=== PATIENT | male | born 1985 | race Caucasian/White ===

== ENCOUNTER → 2021-07-01 14:57 | Outpatient (CLI) | payer SELFPAY | PROVIDERS: Referring Provider Internal Medicine; Visit Provider Internal Medicine | DX: Z23 Encounter for immunization (principal) | CPT/HCPCS: 90471; 90686 ==

== ENCOUNTER → 2021-08-19 09:31 | Outpatient (CLI) | payer OTHER, SELFPAY ==
[2021-08-19 11:29] LABS: COVID19 -Nasal RAPID Negative (Negative)
== END ==
PROVIDERS: Visit Provider Physician Assistant
DX: Z20.822 Contact with and (suspected) exposure to COVID-19 (principal); R05.9 Cough, unspecified; J02.9 Acute pharyngitis, unspecified; R09.89 Other specified symptoms and signs involving the circulatory and respiratory systems; R52 Pain, unspecified
CPT/HCPCS: 87635

== ENCOUNTER → 2021-12-23 11:41 | Outpatient (CLI) | payer OTHER, SELFPAY ==
[2021-12-23 12:55] LABS: Add Manual Diff / Slide Review NO; Basophils Absolute Auto 0 /uL (0-100); Basophils Percent Auto 0.4 % (0-2); Eosinophils Absolute Auto 100 /uL (0-450); Eosinophils Percent Auto 1.4 % (2-4); Hemoglobin 15.3 g/dL (13.5-17.5); Lymphocytes Absolute Auto 1900 /uL (1100-4500); Lymphocytes Percent Auto 29.2 % (25-40); Mean Corpuscular HGB Conc 34.8 % (30-36); Mean Corpuscular Hemoglobin 32.4 PG (26-34); Mean Corpuscular Volume 93.2 fL (80-100); Monocytes Absolute Auto 400 /uL (0-900); Monocytes Percent Auto 6.3 % (3-14); Neutrophils Absolute Auto 4000 /uL (1500-7000); Neutrophils Percent Auto 62.7 % (50-75); Platelet Count 240 X10^3/uL (150-400); Red Blood Cell Count 4.72 X10^6/uL (4.5-5.9); Red Cell Distribution Width 13.1 % (11.6-14.8); White Blood Cell Count 6.4 X10^3/uL (4.5-11.0)
[2021-12-23 13:05] LABS: Alanine Aminotransferase 31 IU/L (<50); Albumin 4.3 g/dL (3.5-5.0); Albumin Globulin Ratio 1.5 (1.0-2.8); Alkaline Phosphatase 57 U/L (38-126); Aspartate Aminotransferase 32 IU/L (17-59); BUN Creatinine Ratio 10.2 (6-22); Bilirubin Total 0.4 mg/dL (0.2-1.3); Blood Urea Nitrogen 10 mg/dL (9-20); Calcium 8.9 mg/dL (8.4-10.2); Carbon Dioxide 32 mmol/L (22-32); Chloride 102 mmol/L (98-107); Cholesterol 188 mg/dL (140-199); Estimated Glomerular Filt Rate > 60 mL/min (>60); Globulin 2.9 g/dL (1.7-4.1); Glucose 97 mg/dL (70-100); HDL Cholesterol 30 mg/dL (40-60); HEMOLYSIS < 15 (0-50); LDL Cholesterol Calculated 124 mg/dL (<100); Potassium 4.1 mmol/L (3.4-5.1); Sodium 137 mmol/L (137-145); Total Protein 7.2 g/dL (6.3-8.2); Triglycerides 172 mg/dL (35-150)
== END ==
PROVIDERS: Referring Provider Family Medicine; Visit Provider Family Medicine
DX: Z13.220 Encounter for screening for lipoid disorders (principal)
CPT/HCPCS: 36415; 80053; 80061; 85025

== ENCOUNTER 2022-10-20 11:32 | Emergency (ER) | payer OTHER, SELFPAY ==
[2022-10-20 11:33] VITALS: BP 136/86; PULSE 96; RESP 18; TEMP 36.6; O2SAT 98; BMI 27.8
--- NOTE | 2022-10-20 12:13 | ED_ITS ---
HPI - Wound/Laceration <Christian Galdamez PA-C - Last Filed: 10/20/22 13:42> General Chief Complaint: Wound/Laceration Stated Complaint: lac Time Seen by Provider: 10/20/22 12:11 Source: patient Mode of arrival: Ambulatory History of Present Illness HPI narrative: 37-year-old male with past medical history ADHD presents to the ED after a injury to the left 5th finger sustained just prior to arrival. Patient states he was working with some glass tubes, when accidentally he injured himself on a piece of broken glass. Patient denies numbness, tingling, weakness. Patient endorses full range of motion. Patient not on blood thinners. Tetanus is up-to-date. Related Data Allergies Allergy/AdvReac Type Severity Reaction Status Date / Time Sulfa (Sulfonamide Allergy Verified 10/20/22 11:33 Antibiotics) Review of Systems <Christian Galdamez PA-C - Last Filed: 10/20/22 13:42> Review of Systems ROS Unobtainable: All systems reviewed & are unremarkable except as noted in HPI and below Constitutional Constitutional: Denies chills, Denies fatigue, Denies fever(s), Denies frequent falls, Denies lethargy and Denies weakness Eyes Eyes: Denies change in vision, Denies eye discharge, Denies irritation and Denies loss of vision ENT Ears, Nose, Mouth, and Throat: Denies change in voice, Denies dizziness, Denies neck pain, Denies sore throat and Denies throat swelling Cardiovascular Cardiovascular: Denies chest pain, Denies irregular heart rhythm, Denies lightheadedness, Denies palpitations, Denies dyspnea, Denies dyspnea on exertion and Denies orthopnea Respiratory Respiratory: Denies cough, Denies dyspnea, Denies dyspnea on exertion and Denies wheezing Gastrointestinal Gastrointestinal: Denies abdominal pain, Denies change in bowel habits, Denies diarrhea, Denies nausea and Denies vomiting Genitourinary Genitourinary: Denies hematuria, Denies flank pain, Denies urinary incontinence and Denies urinary urgency Musculoskeletal Musculoskeletal: Denies back pain, Denies muscle weakness, Denies neck pain, Denies numbness and Denies tingling Integumentary/Breasts Skin/Breast: Denies pruritus, Denies erythema, Denies rash and Denies wounds Comments: Laceration to L 5th finger Neurologic Neurologic: Denies behavioral changes, Denies confusion, Denies dizziness, Denies frequent falls, Denies loss of vision, Denies numbness, Denies tingling and Denies weakness Psychiatric Psychiatric: Denies anxiety, Denies behavioral changes, Denies confusion, Denies depression, Denies homicidal ideation and Denies suicidal ideation Endocrine Endocrine: Denies fatigue, Denies flushing and Denies palpitations Hematologic/Lymphatic Hematologic/Lymphatic: Denies easy bruising Allergic/Immunologic Allergic/Immunologic: Denies urticaria, Denies throat swelling and Denies wheezing Patient History <Christian Galdamez PA-C - Last Filed: 10/20/22 13:42> Social History Smoking Status: Current every day smoker Smoking Status: Current every day smoker Substance Use Type: does not use Exam <Christian Galdamez PA-C - Last Filed: 10/20/22 13:42> Narrative Exam Narrative: Const General:?cooperative, healthy appearing and comfortable [facility] Head:?normal to inspection Ears:?hearing grossly normal bilaterally Nose:?external nose normal Face and sinus:?normal facial exam and sinuses nontender Mouth:?oral mucosae normal Throat:?posterior oropharynx normal Eyes General:?appearance normal, both eyes and all related structures Neck Neck:?normal visual inspection and no lymphadenopathy noted Resp Effort & Inspection:?normal respiratory effort Auscultation:?clear to auscultation bilaterally Cardio Rate:?regular rate Rhythm:?regular rhythm Integumentary 1.5cm laceration to palmar aspect of the distal phalange of the L 5th finger. Bleeding controlled with pressure. Musculoskeletal Full range of motion. Strength and sensation intact. Patient is neurovascularly intact. Neuro General:?patient alert, patient awake and patient oriented x3 Initial Vital Signs Initial Vital Signs: Vital Signs Temperature 98 F 10/20/22 11:33 Pulse Rate 96 H 10/20/22 11:33 Respiratory Rate 18 10/20/22 11:33 Blood Pressure 136/86 10/20/22 11:33 Pulse Oximetry 98 10/20/22 11:33 Oxygen Delivery Method 10/20/22 11:33 <Tobin Ryan DO - Last Filed: 10/21/22 07:01> Initial Vital Signs Initial Vital Signs: Vital Signs Temperature 98 F 10/20/22 11:33 Pulse Rate 96 H 10/20/22 11:33 Respiratory Rate 18 10/20/22 11:33 Blood Pressure 136/86 10/20/22 11:33 Pulse Oximetry 98 10/20/22 11:33 Oxygen Delivery Method 10/20/22 11:33 Procedures <NIKHIL Mckinney Last Filed: 10/20/22 13:42> Laceration Repair Laceration 1: Site: hand (Left 5th finger) Side (If applicable): left Size (cm): 1.5 Description: linear and clean Local Anesthetic: lidocaine 2% Amount of anesthesia used (mL): 1 Pre-repair: wound explored, irrigated extensively and deep structures intact Skin layer closed with: vicryl Skin layer suture size: 5-0 Number of sutures: 4 Technique: simple, interrupted Course <NIKHIL Mckinney Last Filed: 10/20/22 13:42> Orders Ordered: ED Orders 10/20/22 12:21 XR finger LT min 2V Stat Vital Signs Vital signs: Vital Signs - 8 hr 10/20/22 11:33 Temperature 98 F Pulse Rate 96 H Respiratory Rate 18 Blood Pressure 136/86 Pulse Oximetry 98 Oxygen Delivery Method Room Air <Tobin Ryan DO - Last Filed: 10/21/22 07:01> Orders Ordered: ED Orders 10/20/22 12:21 XR finger LT min 2V Stat Vital Signs Vital signs: Vital Signs - 8 hr 10/20/22 11:33 Temperature 98 F Pulse Rate 96 H Respiratory Rate 18 Blood Pressure 136/86 Pulse Oximetry 98 Oxygen Delivery Method Room Air MDM - Wound/Laceration <NIKHIL Mckinney Last Filed: 10/20/22 13:42> MDM Narrative Medical decision making narrative: 37-year-old male with past medical history ADHD presents to the ED after a injury to the left 5th finger sustained just prior to arrival. Will get an x- ray to rule out fracture/foreign body. Will repair laceration with sutures. X-ray negative for fracture/foreign bodies. Laceration was repaired with 4 sutures. Wound care instructions, signs of infection discussed with patient. ED return precautions discussed with patient. Medical records reviewed: Yes Discharge Plan Departure Patient Disposition: Home Clinical Impression: Laceration Instructions: DI for Laceration Repair Activity Restrictions/Additional Instructions: You were evaluated in the ED today for a laceration that he sustained to your left pinky finger. X-ray did not show any retained glass pieces. Your laceration was repaired with 4 sutures, which will need to be removed in 7-10 days. You may go to a urgent Care Clinic, walk-in clinic, PCP or return to the ED for suture removal. Please watch for signs of infection including worsening redness, pain, swelling, warmth, discharge. Return to the ED if you note any signs of infection, or you experience numbness, tingling, weakness. Referrals: Sami Liu MD [Primary Care Provider] - Stand Alone Forms: Patient Portal/API <Tobin Ryan DO - Last Filed: 10/21/22 07:01> Cosign ED Attending Cosconiature Attestation: I was immediately available in the department for consultation. This documentation has been reviewed and I agree with assessment and plan. Supervised by Tobin Ryan DO
--- NOTE | 2022-10-20 12:21 | DI.RAD.S_ITS ---
PROCEDURE: XR FINGER LT MIN 2V INDICATIONS: ?FB; L 5th finger TECHNIQUE: AP hand, 2 views of the left 5th finger(s) acquired. COMPARISON: None. FINDINGS: Bones: No fractures or dislocations. No suspicious bony lesions. Soft tissues: No suspicious soft tissue calcifications. IMPRESSION: No radiopaque foreign body or other acute finding. Dictated by: Jamal Long M.D. on 10/20/2022 at 13:02 Approved by: Jamal Long M.D. on 10/20/2022 at 13:02
== END 2022-10-20 13:39 | disposition home or self-care (01) ==
PROVIDERS: Emergency Provider Student in an Organized Health Care Education/Training Program; PCP Family Medicine
DX: S61.217A Laceration without foreign body of left little finger without damage to nail, initial encounter (principal); W25.XXXA Contact with sharp glass, initial encounter; Y99.0 Civilian activity done for income or pay
CPT/HCPCS: 12001; 73140; 99283

== ENCOUNTER → 2023-07-17 14:10 | Outpatient (CLI) | payer OTHER, SELFPAY | PROVIDERS: PCP Family Medicine; Referring Provider Family Medicine; Visit Provider Family Medicine | DX: Z23 Encounter for immunization (principal) | CPT/HCPCS: 90471; 90686 ==

== ENCOUNTER → 2024-08-01 17:06 | Outpatient (CLI) | payer OTHER, SELFPAY | PROVIDERS: PCP Family Medicine; Referring Provider Internal Medicine; Visit Provider Internal Medicine | DX: Z23 Encounter for immunization (principal) | CPT/HCPCS: 90471; 90656 ==

== ENCOUNTER 2025-02-09 14:37 | Emergency (ER) | payer OTHER, SELFPAY ==
[2025-02-09 14:41] VITALS: BP 131/92; PULSE 110; RESP 18; TEMP 36.9; O2SAT 97; BMI 27.8
--- NOTE | 2025-02-09 15:59 | ED.BURNSMOKE ---
HPI - Burn/Smoke Inhalation <Ely Schneider PA-C - Last Filed: 02/09/25 19:04> General Chief complaint: Burn/Smoke Inhalation Stated complaint: burn hand arm foot Time Seen by Provider: 02/09/25 15:52 Source: patient Mode of arrival: Ambulatory History of Present Illness HPI Narrative: Mr. 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 Patient was working when a pipe released steam burning his left arm, right wrist and left ankle, the remainder of his body was unharmed as his clothing protected him, the steam did not affect his face. He now has erythema on the left forearm/antecubital fossa region, right wrist, and left lateral ankle approximately 2% body surface area. There was no blistering. He has been applying Dermoplast with improvement in symptoms. Related Data Allergies Allergy/AdvReac Type Severity Reaction Status Date / Time Sulfa (Sulfonamide Allergy Verified 02/09/25 14:41 Antibiotics) Review of Systems <Ely Schneider PA-C - Last Filed: 02/09/25 19:04> Review of Systems ROS Unobtainable: All systems reviewed & are unremarkable except as noted in HPI and below Patient History <Ely Schneider PA-C - Last Filed: 02/09/25 19:04> Social History Smoking Status: Current every day smoker Smoking Status: Current every day smoker tobacco type: cigarettes Exam <Ely Schneider PA-C - Last Filed: 02/09/25 19:04> Narrative Exam Narrative: GENERAL: 39 year old patient appears stated age. Well-developed patient, in no acute distress. HEAD: Atraumatic. Normocephalic. EYES: No scleral icterus. No injection or drainage. ENT: Airway patent. NECK: Trachea midline. Cervical ROM intact. CARDIOVASCULAR: Regular rate RESPIRATORY: ?Nonlabored respirations. ?Speaking in clear, full sentences. EXTREMITIES: Blanchable erythema consistent with superficial burn 1% body surface area left mid anterior arm, 0.5% BSA right radial wrist, 0.5% BSA left alteral ankle. No blistering or open wounds. BACK: Nontender without deformity or crepitance. No flank tenderness. NEURO: AOx3. ?Clear speech. ?Moves all 4 extremities appropriately. SKIN: Approximately 2% body surface area superficial burn left arm, right wrist, left ankle described above, no other grady, second-degree grady or facial grady. Initial Vital Signs Initial Vital Signs: Vital Signs Temperature 98.4 F 02/09/25 14:41 Pulse Rate 110 H 02/09/25 14:41 Respiratory Rate 18 02/09/25 14:41 Blood Pressure 131/92 H 02/09/25 14:41 Pulse Oximetry 97 02/09/25 14:41 Oxygen Delivery Method Room Air 02/09/25 14:41 <DO Jayy Sorto Last Filed: 02/20/25 19:06> Initial Vital Signs Initial Vital Signs: Vital Signs Temperature 98.4 F 02/09/25 14:41 Pulse Rate 110 H 02/09/25 14:41 Respiratory Rate 18 02/09/25 14:41 Blood Pressure 131/92 H 02/09/25 14:41 Pulse Oximetry 97 02/09/25 14:41 Oxygen Delivery Method Room Air 02/09/25 14:41 Course <Ely Schneider PA-C - Last Filed: 02/09/25 19:04> Vital Signs Vital signs: Vital Signs - 8 hr 02/09/25 14:41 02/09/25 16:51 Temperature 98.4 F Pulse Rate 110 H 91 H Respiratory Rate 18 16 Blood Pressure 131/92 H 138/83 Pulse Oximetry 97 98 Oxygen Delivery Method Room Air Room Air <DO Jayy Sorto Last Filed: 02/20/25 19:06> Vital Signs Vital signs: Vital Signs - 8 hr 02/09/25 14:41 02/09/25 16:51 Temperature 98.4 F Pulse Rate 110 H 91 H Respiratory Rate 18 16 Blood Pressure 131/92 H 138/83 Pulse Oximetry 97 98 Oxygen Delivery Method Room Air Room Air MDM - Burn/Smoke Inhalation <NIKHIL Casillas Last Filed: 02/09/25 19:04> Medical Records Attestation: I reviewed the patient's medical records. 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 Differential diagnosis includes but isn't limited to steam burn, superficial burn, superficial partial burn, etc. On exam patient is in no acute distress, nontoxic appearing. He is approximately 2% total body surface area first-degree/superficial burn including the left arm, right wrist and left lateral ankle which occurred because of steam while he was working. No facial or airway involvement. No blistering or open wounds. Symptoms improved with topical burn spray. We discussed wound care, stretching, applying bacitracin, keeping grady covered and protected, ibuprofen/acetaminophen for pain. Discussed ED return precautions. Patient verbalized understanding of all information agreeable to the plan. He is stable for discharge home. Discharge Plan Departure Patient Disposition: Home Clinical Impression: Burn of skin due to steam, Superficial burn Instructions: DI for Grady Activity Restrictions/Additional Instructions: Dear Mr. Lopez, Thank you for coming to the emergency department. Today you were evaluated for a steam burn. At this time it appears you have a first-degree/superficial burn of the left arm, right wrist and left ankle. Please keep these wounds clean and covered at all times. Use cool water with mild soap to cleanse the grady daily. Please keep the skin covered with protective ointment such as bacitracin, I recommend wearing long sleeves with a loose-fitting shirt. If blisters form, leave them intact and do not pop them. Please watch [facility] grady 306 stretching videos on YouTube to help with healing. Please follow up with your primary care doctor within the next 2-3 days for ER follow-up. (If you do not have a PCP you can call [phone]. ?to schedule an appointment with an [facility] Primary Care Provider) IF YOU DEVELOP ANY NEW OR WORSENING SYMPTOMS, RETURN TO THE ER! Please read the attached instructions, they highlight more specific treatments and interventions for you at home. Thank you for letting me participate in your care, Ely Schneider PA-C Referrals: Sami Liu MD [Primary Care Provider, Family Practice] Stand Alone Forms: Patient Portal/API, Work Release Note ED Sign-out <Jo Mercedes, - Last Filed: 02/20/25 19:06> Cosign ED Attending Cosconiature Attestation: I was immediately available in the department for consultation.
[2025-02-09 16:51] VITALS: BP 138/83; PULSE 91; RESP 16; O2SAT 98
== END 2025-02-09 16:50 | disposition home or self-care (01) ==
PROVIDERS: Emergency Provider Physician Assistant; PCP Family Medicine
DX: T22.00XA Burn of unspecified degree of shoulder and upper limb, except wrist and hand, unspecified site, initial encounter (principal); T23.071A Burn of unspecified degree of right wrist, initial encounter; T25.012A Burn of unspecified degree of left ankle, initial encounter; X13.1XXA Other contact with steam and other hot vapors, initial encounter
CPT/HCPCS: 99281